=== PATIENT | female | born 2000 | race Caucasian/White ===

== ENCOUNTER 2019-09-09 14:10 | Emergency (ER) | payer BC ==
[~2019-09-09] VITALS: Ht 172.7 cm; Wt 71.8 kg
[2019-09-09 14:25] VITALS: BP 123/73
--- NOTE | 2019-09-09 18:32 | NUR ---
NOTIFIED U/S TECH OF /S AT 1829
--- NOTE | 2019-09-09 18:39 | NUR ---
[place] is here
== END 2019-09-09 19:55 | disposition home or self-care (01) ==
LOC: EDSEX 14:13 → ER 14:13
DX: O03.9 Complete or unspecified spontaneous abortion without complication (principal); R10.9 Unspecified abdominal pain; Z3A.10 10 weeks gestation of pregnancy; O26.891 Other specified pregnancy related conditions, first trimester
CPT/HCPCS: 36415; 76801; 76817; 84702; 99284